=== PATIENT | male | born 1970 | race Caucasian/White ===

== ENCOUNTER 2020-08-04 10:13 | Inpatient (IN) | payer MEDICAID ==
[~2020-08-04] VITALS: Ht 180.3 cm; Wt 106.9 kg
--- NOTE | 2020-08-04 10:36 | NUR ---
CARD LEAD, SPO2, B/P IN PLACE. CALL LIGHT WITHIN REACH
--- NOTE | 2020-08-04 10:55 | NUR ---
RECEIVED REPORT FROM MALINDA MUÑOZ. ASSUMING CARE AT THIS TIME.
[2020-08-04] MEDS ORDERED: SODIUM CHLORIDE FLUSH 10ML SYR IVF PRN (11:00)
[2020-08-04] MEDS ORDERED: HYDROmorphone 1 MG/ML, 1ML INJ ONE ×2 (11:09→11:45)
[2020-08-04] MEDS: HYDROmorphone 1 MG/ML, 1ML INJ IVPush PRN ×2 (11:13→11:49)
[2020-08-04] MEDS ORDERED: ONDANSETRON 2MG/ML, 2ML IVPush ONE (11:30)
[2020-08-04] MEDS ORDERED: SODIUM CHLORIDE FLUSH 10ML SYR IVF ONE (11:30)
[2020-08-04] MEDS ORDERED: HYDROmorphone 2 MG/ML, 1ML IVPush PRN (11:30)
--- NOTE | 2020-08-04 11:49 | NUR ---
HOSPITALIST AT BEDSIDE.
--- NOTE | 2020-08-04 11:49 | NUR ---
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 REPORT GIVEN TO RHEA MUÑOZ. PT RTG TO ROOM [id number]
--- NOTE | 2020-08-04 11:50 | NUR ---
PT PLACED ON OXYGEN FOR SAFETY AFTER PAIN MEDS.
[2020-08-04] MEDS ORDERED: VANCOMYCIN PER PHARMACY MC PRN (12:00)
[2020-08-04] MEDS ORDERED: KETOROLAC 30 MG/1 ML IM PRN (12:00)
[2020-08-04] MEDS ORDERED: POLYETHYLENE GLYCOL 17 GM PACKET PO PRN (12:00)
[2020-08-04] MEDS ORDERED: METOCLOPRAMIDE 5 MG/ML, 2ML IVPush PRN (12:00)
[2020-08-04] MEDS ORDERED: TRAZODONE 50MG TABLET PO PRN (12:00)
[2020-08-04 12:44] VITALS: BP 123/76
[2020-08-04] MEDS ORDERED: PHARMACOKINETIC CONSULTATION MC ONE (13:00)
[2020-08-04] MEDS ORDERED: PHARMACOKINETIC MONITORING MC PRN (13:00)
[2020-08-04] MEDS: INSULIN LISPRO 100 UNITS/ML, PEN SQ-INSULIN SCH ×3 (13:26→21:00)
[2020-08-04] MEDS: OXYcodone IR 5MG TABLET PO PRN ×3 (13:44→21:49)
[2020-08-04] MEDS: OxyconTIN ER 15 MG TAB.ER PO SCH (15:09)
[2020-08-04] MEDS: PIPERACILLIN/TAZO/PMX 4.5GM 100 ML IV SCH ×2 (16:38→23:02)
[2020-08-04] MEDS ORDERED: OMNIPAQUE 350 MG/ML, 150 ML BOTTLE ONE (16:38)
[2020-08-04] MEDS: ONDANSETRON 2MG/ML, 2ML IVPush PRN (16:46)
[2020-08-04] MEDS: VANCOMYCIN 2,000 MG in SODIUM CHLORIDE 0.9% 500 ML IV SCH (17:39)
[2020-08-04 19:15] VITALS: BP 110/66
[2020-08-04] MEDS ORDERED: GABA600T7 PO (20:57)
[2020-08-04] MEDS ORDERED: PREG75CA PO (20:57)
[2020-08-04] MEDS ORDERED: GABAPENTIN 300 MG CAPSULE PO ONE (21:30)
[2020-08-04] MEDS: ACETAMINOPHEN 325 MG TABLET PO PRN (22:04)
[2020-08-05] MEDS ORDERED: METF-734 PO (00:56)
[2020-08-05] MEDS ORDERED: HYOS0.1268 PO (00:56)
[2020-08-05] MEDS ORDERED: VENL225T PO (00:56)
[2020-08-05] MEDS ORDERED: SUCR1TAB PO (00:56)
[2020-08-05] MEDS ORDERED: CELE200C PO (00:56)
[2020-08-05] MEDS ORDERED: LEVO50CA4 PO (00:56)
[2020-08-05] MEDS ORDERED: METO-264 PO (00:56)
[2020-08-05] MEDS ORDERED: OMEP20CA20 PO (00:56)
[2020-08-05] MEDS ORDERED: PRAZ1CAP2 PO (00:56)
[2020-08-05] MEDS ORDERED: LITH300T3 PO (00:56)
[2020-08-05] MEDS ORDERED: ATOR20TA86 PO (00:56)
[2020-08-05 01:05] VITALS: BP 132/78
[2020-08-05] MEDS: OxyconTIN ER 15 MG TAB.ER PO SCH ×2 (03:42→15:25)
[2020-08-05] MEDS: PIPERACILLIN/TAZO/PMX 4.5GM 100 ML IV SCH ×3 (04:53→16:25)
[2020-08-05] MEDS: ACETAMINOPHEN 325 MG TABLET PO PRN (04:59)
[2020-08-05] MEDS: OXYcodone IR 5MG TABLET PO PRN ×4 (04:59→21:46)
[2020-08-05] MEDS: VANCOMYCIN 2,000 MG in SODIUM CHLORIDE 0.9% 500 ML IV SCH ×2 (06:00→17:27)
[2020-08-05 06:05] LABS: BASOPHILS % (AUTO) 1 % (0-1); EOSINOPHILS % (AUTO) 7 % (1-7); LYMPHOCYTES % (AUTO) 20 % (22-44); MEAN CORPUSCULAR HEMOGLOBIN 31.3 pg (27.5-34.5); MEAN CORPUSCULAR HGB CONC 34.2 g/dL (33.2-36.2); MEAN PLATELET VOLUME 7.1 fL (7.4-10.4); MONOCYTES % (AUTO) 7 % (2-9); NEUTROPHILS % (AUTO) 65 % (42-75); PLATELET COUNT 268 x10^3/uL (130-400); RED BLOOD COUNT 4.17 x10^6/uL (4.38-5.82); RED CELL DISTRIBUTION WIDTH 13.3 % (9.4-14.8)
[2020-08-05 06:18] LABS: MD NO
[2020-08-05 06:21] LABS: ALBUMIN 3.4 g/dL (3.4-5.0); ANION GAP 7 mmol/L (5-15); CHLORIDE 106 mmol/L (98-107)
[2020-08-05 06:24] LABS: ALANINE AMINOTRANSFERASE 28 U/L (12-78); ALKALINE PHOSPHATASE 95 U/L (45-117); BILIRUBIN,TOTAL 0.9 mg/dL (0.2-1.0); CREATININE 1.27 mg/dL (0.7-1.3); TOTAL PROTEIN 6.6 g/dL (6.4-8.2)
[2020-08-05] MEDS: INSULIN LISPRO 100 UNITS/ML, PEN SQ-INSULIN SCH ×4 (07:48→21:35)
[2020-08-05 08:05] VITALS: BP 132/84
[2020-08-05] MEDS: SENNA/DOCUSATE TABLET PO SCH (09:00)
[2020-08-05 12:00] VITALS: BP 135/88
[2020-08-05] MEDS ORDERED: HYOSCYAMINE 0.125 MG TABLET PO PRN (14:00)
[2020-08-05] MEDS: SUCRALFATE 1 GM TABLET PO SCH ×2 (15:25→21:36)
[2020-08-05] MEDS: GABAPENTIN 400 MG CAPSULE PO SCH ×2 (15:25→21:30)
[2020-08-05] MEDS ORDERED: PREGABALIN 75 MG CAPSULE PO SCH (16:00)
[2020-08-05] MEDS: ONDANSETRON 2MG/ML, 2ML IVPush PRN (16:35)
[2020-08-05 19:00] VITALS: BP 149/83
[2020-08-05] MEDS: LITHIUM CARBONATE 300 MG TABLET.ER PO SCH (21:00)
[2020-08-05] MEDS: METOPROLOL SUCCINATE 50 MG TAB.ER.24H PO SCH (21:32)
[2020-08-06] MEDS: PRAZOSIN 2 MG CAPSULE PO SCH ×2 (00:24→22:09)
[2020-08-06] MEDS: PIPERACILLIN/TAZO/PMX 4.5GM 100 ML IV SCH ×4 (00:25→16:21)
[2020-08-06 00:36] VITALS: BP 132/73
[2020-08-06] MEDS: OxyconTIN ER 15 MG TAB.ER PO SCH ×2 (02:53→15:07)
[2020-08-06] MEDS: LEVOTHYROXINE 50 MCG TABLET PO SCH ×2 (06:00→06:32)
[2020-08-06] MEDS: VANCOMYCIN 2,000 MG in SODIUM CHLORIDE 0.9% 500 ML IV SCH (06:17)
[2020-08-06] MEDS: OXYcodone IR 5MG TABLET PO PRN ×4 (06:23→21:44)
[2020-08-06] MEDS: INSULIN LISPRO 100 UNITS/ML, PEN SQ-INSULIN SCH ×4 (07:00→21:47)
[2020-08-06] MEDS: SUCRALFATE 1 GM TABLET PO SCH ×4 (07:35→22:08)
[2020-08-06] MEDS: OMEPRAZOLE 20 MG CAPSULE.DR PO SCH (07:35)
[2020-08-06 07:50] VITALS: BP 119/76
[2020-08-06] MEDS: SENNA/DOCUSATE TABLET PO SCH (09:00)
[2020-08-06] MEDS: ATORVASTATIN 40 MG TABLET PO SCH (10:04)
[2020-08-06] MEDS: METOPROLOL SUCCINATE 50 MG TAB.ER.24H PO SCH ×2 (10:04→22:08)
[2020-08-06] MEDS: LITHIUM CARBONATE 300 MG TABLET.ER PO SCH ×2 (10:04→22:08)
[2020-08-06] MEDS: VENLAFAXINE 75 MG CAP ER PO SCH (10:05)
[2020-08-06] MEDS: GABAPENTIN 400 MG CAPSULE PO SCH ×3 (10:05→22:08)
[2020-08-06 13:01] VITALS: BP 126/85
[2020-08-06 19:13] VITALS: BP 115/67
[2020-08-06] MEDS: NICOTINE 21 MG/24 HR PATCH.TD24 TD SCH (22:09)
[2020-08-07] MEDS: VANCOMYCIN 2,000 MG in SODIUM CHLORIDE 0.9% 500 ML IV SCH ×2 (01:26→19:44)
[2020-08-07] MEDS: OXYcodone IR 5MG TABLET PO PRN ×5 (01:26→20:14)
[2020-08-07 01:33] VITALS: BP 126/73
[2020-08-07] MEDS: OxyconTIN ER 15 MG TAB.ER PO SCH ×2 (03:06→15:34)
[2020-08-07] MEDS: LEVOTHYROXINE 50 MCG TABLET PO SCH (05:14)
[2020-08-07] MEDS: SUCRALFATE 1 GM TABLET PO SCH ×4 (06:42→19:48)
[2020-08-07 06:48] VITALS: BP 131/88
[2020-08-07] MEDS: INSULIN LISPRO 100 UNITS/ML, PEN SQ-INSULIN SCH ×4 (07:00→20:34)
[2020-08-07] MEDS: OMEPRAZOLE 20 MG CAPSULE.DR PO SCH (07:17)
[2020-08-07] MEDS: LITHIUM CARBONATE 300 MG TABLET.ER PO SCH ×3 (09:00→19:48)
[2020-08-07] MEDS: SENNA/DOCUSATE TABLET PO SCH (09:00)
[2020-08-07] MEDS: GABAPENTIN 400 MG CAPSULE PO SCH ×3 (09:23→19:47)
[2020-08-07] MEDS: VENLAFAXINE 75 MG CAP ER PO SCH (09:23)
[2020-08-07] MEDS: METOPROLOL SUCCINATE 50 MG TAB.ER.24H PO SCH ×2 (09:23→19:48)
[2020-08-07] MEDS: ATORVASTATIN 40 MG TABLET PO SCH (09:23)
[2020-08-07 09:43] LABS: CHLORIDE 106 mmol/L (98-107)
[2020-08-07 09:52] LABS: ANION GAP 10 mmol/L (5-15); CREATININE 1.25 mg/dL (0.7-1.3)
[2020-08-07 14:32] VITALS: BP 137/87
[2020-08-07] MEDS: NICOTINE 21 MG/24 HR PATCH.TD24 TD SCH (19:47)
[2020-08-07] MEDS: PRAZOSIN 2 MG CAPSULE PO SCH (19:48)
[2020-08-07 19:52] VITALS: BP 114/79
[2020-08-08 01:33] VITALS: BP 100/54
[2020-08-08] MEDS: OXYcodone IR 5MG TABLET PO PRN ×5 (02:34→23:00)
[2020-08-08] MEDS: OxyconTIN ER 15 MG TAB.ER PO SCH ×2 (02:34→15:16)
[2020-08-08] MEDS: ONDANSETRON 2MG/ML, 2ML IVPush PRN (02:40)
[2020-08-08] MEDS: OMEPRAZOLE 20 MG CAPSULE.DR PO SCH (06:21)
[2020-08-08] MEDS: SUCRALFATE 1 GM TABLET PO SCH ×4 (06:21→21:14)
[2020-08-08] MEDS: LEVOTHYROXINE 50 MCG TABLET PO SCH (06:27)
[2020-08-08] MEDS: INSULIN LISPRO 100 UNITS/ML, PEN SQ-INSULIN SCH ×4 (07:00→21:35)
[2020-08-08 08:31] VITALS: BP 109/67
[2020-08-08] MEDS ORDERED: GABAPENTIN 300 MG CAPSULE ONE (08:56)
[2020-08-08] MEDS ORDERED: GABAPENTIN 100 MG CAPSULE ONE (08:59)
[2020-08-08] MEDS: VENLAFAXINE 75 MG CAP ER PO SCH (09:02)
[2020-08-08] MEDS: LITHIUM CARBONATE 300 MG TABLET.ER PO SCH ×2 (09:03→21:14)
[2020-08-08] MEDS: METOPROLOL SUCCINATE 50 MG TAB.ER.24H PO SCH ×2 (09:03→21:13)
[2020-08-08] MEDS: SENNA/DOCUSATE TABLET PO SCH (09:03)
[2020-08-08] MEDS: ATORVASTATIN 40 MG TABLET PO SCH (09:06)
[2020-08-08] MEDS: GABAPENTIN 400 MG CAPSULE PO SCH ×3 (09:15→21:13)
[2020-08-08] MEDS: VANCOMYCIN 2,000 MG in SODIUM CHLORIDE 0.9% 500 ML IV SCH (13:17)
[2020-08-08 14:30] VITALS: BP 107/69
[2020-08-08 18:42] VITALS: BP 109/61
[2020-08-08] MEDS: NICOTINE 21 MG/24 HR PATCH.TD24 TD SCH (21:13)
[2020-08-08] MEDS: PRAZOSIN 2 MG CAPSULE PO SCH (21:13)
[2020-08-09 00:45] VITALS: BP 103/70
[2020-08-09] MEDS: OxyconTIN ER 15 MG TAB.ER PO SCH (03:11)
[2020-08-09] MEDS: LEVOTHYROXINE 50 MCG TABLET PO SCH (05:35)
[2020-08-09] MEDS: OXYcodone IR 5MG TABLET PO PRN ×2 (06:04→10:24)
[2020-08-09] MEDS: INSULIN LISPRO 100 UNITS/ML, PEN SQ-INSULIN SCH ×2 (07:00→11:00)
[2020-08-09] MEDS: LITHIUM CARBONATE 300 MG TABLET.ER PO SCH (08:07)
[2020-08-09] MEDS: ATORVASTATIN 40 MG TABLET PO SCH (08:07)
[2020-08-09] MEDS: OMEPRAZOLE 20 MG CAPSULE.DR PO SCH (08:07)
[2020-08-09] MEDS: SUCRALFATE 1 GM TABLET PO SCH ×2 (08:07→11:55)
[2020-08-09] MEDS: GABAPENTIN 400 MG CAPSULE PO SCH (08:07)
[2020-08-09] MEDS: VENLAFAXINE 75 MG CAP ER PO SCH (08:08)
[2020-08-09] MEDS: METOPROLOL SUCCINATE 50 MG TAB.ER.24H PO SCH (08:08)
[2020-08-09] MEDS: SENNA/DOCUSATE TABLET PO SCH (08:10)
[2020-08-09 08:12] VITALS: BP 125/74
[2020-08-09] MEDS: VANCOMYCIN 2,000 MG in SODIUM CHLORIDE 0.9% 500 ML IV SCH (08:22)
[2020-08-09] MEDS ORDERED: DOXY100C2 PO (09:20)
[2020-08-09] MEDS ORDERED: OXYC5TAB98 PO (09:20)
== END 2020-08-09 13:21 | disposition home or self-care (01) | DRG 721 ==
LOC: SUATTDRO 11:03 → ED 11:07 → EDIP 11:36 → 3N 11:59
PROVIDERS: ADMIT Hospitalist; ATTEND Family Medicine
DX: T81.41XA Infection following a procedure, superficial incisional surgical site, initial encounter (principal); L03.115 Cellulitis of right lower limb; E11.40 Type 2 diabetes mellitus with diabetic neuropathy, unspecified; E78.5 Hyperlipidemia, unspecified; F11.20 Opioid dependence, uncomplicated; F31.9 Bipolar disorder, unspecified; G47.30 Sleep apnea, unspecified; Y83.8 Other surgical procedures as the cause of abnormal reaction of the patient, or of later complication, without mention of misadventure at the time of the procedure; T33.832A Superficial frostbite of left toe(s), initial encounter; T33.831A Superficial frostbite of right toe(s), initial encounter; I10 Essential (primary) hypertension; Z80.0 Family history of malignant neoplasm of digestive organs; Z83.3 Family history of diabetes mellitus; Z82.49 Family history of ischemic heart disease and other diseases of the circulatory system; Z89.439 Acquired absence of unspecified foot; Z88.2 Allergy status to sulfonamides; Z88.8 Allergy status to other drugs, medicaments and biological substances; Y92.89 Other specified places as the place of occurrence of the external cause; X31.XXXA Exposure to excessive natural cold, initial encounter; Y93.89 Activity, other specified; Y99.8 Other external cause status
CPT/HCPCS: 36415; 80048; 80053; 80202; 82962; 85025; 87070; 87077; 87186; 87205; 99285; G0378; J1170; J2405; J2543; J3370; Q9967; J1815; J7040